=== PATIENT | male | born 2000 | race Asian ===

== ENCOUNTER 2024-04-24 22:04 | Emergency (ER) | payer OTHER ==
[~2024-04-24] VITALS: Ht 170.2 cm; Wt 72.7 kg
[2024-04-24 22:25] VITALS: BP 115/79; PULSE 65; RESP 18; TEMP 98.1; O2SAT 97
[2024-04-24] MEDS ORDERED: HYDR-3972 PO (22:27)
[2024-04-24] MEDS ORDERED: AMOX-580 PO (22:27)
[2024-04-24] MEDS: ketorolac trometh. 30mg/ml inj. IM ONE (22:32)
[2024-04-24] MEDS: amox tr/potassium clavulanate 875/125mg TAB PO ONE (22:32)
== END 2024-04-24 22:41 | disposition home or self-care (01) ==
LOC: ER 22:04
DX: S61.250A Open bite of right index finger without damage to nail, initial encounter (principal); L02.511 Cutaneous abscess of right hand; W54.0XXA Bitten by dog, initial encounter; Y93.89 Activity, other specified; Y92.89 Other specified places as the place of occurrence of the external cause; Y99.8 Other external cause status
CPT/HCPCS: 99283